=== PATIENT | female | born 1950 | race Caucasian/White ===

== ENCOUNTER 2024-02-13 06:07 | Day surgery (SDC) | payer MEDICARE ==
[2024-02-13 06:40] VITALS: RESP 18
[2024-02-13] MEDS ORDERED: DIPRIVAN 200 MG/20 ML IV ONE (07:06)
[2024-02-13] MEDS ORDERED: ROBINUL ONE (07:06)
[2024-02-13 07:48] VITALS: O2SAT 97
[2024-02-13 08:09] VITALS: BP 112/58; PULSE 53; TEMP 97
[2024-02-13] MEDS ORDERED: PITRESSIN 20 UNITS ONE (08:10)
--- NOTE | 2024-02-14 11:47 | OP ---
SURGERY DATE/TIME: 02/13/2024 [id number] PREOPERATIVE DIAGNOSIS: Positive Cologuard. POSTOPERATIVE DIAGNOSIS: 1) Normal colon. 2) Diverticulosis. PROCEDURE: Colonoscopy. SURGEON: Isaiah Akins MD. ANESTHESIA: MAC by Ziggy Montemayor CRNA. ESTIMATED BLOOD LOSS: None. SPECIMENS: None. DESCRIPTION OF PROCEDURE AND FINDINGS: After informed written consent was obtained, the patient was taken to the endoscopy suite. She was placed in the left lateral decubitus position and anesthesia was titrated to the desired level of consciousness. Digital rectal exam showed normal sphincter tone and no internal lesions. The scope was inserted in the rectum and sequentially the entire colonic mucosa was traversed. The level of the cecum was reached and verified with direct visualization of the ileocecal valve. Prep was noted to be fair to good. Prior to withdrawal, the entire length of the colon was carefully inspected. There were scattered diverticula but no evidence of any bleeding. There were no mucosal lesions or polyps encountered. Prior to withdrawal, retroflexion showed no internal lesions. Scope was removed. Patient was transferred to the recovery room in good condition.
== END 2024-02-13 08:15 | disposition home or self-care (01) ==
LOC: SDC 06:07
PROVIDERS: ATTEND Family Medicine
DX: R19.5 Other fecal abnormalities (principal); K57.30 Diverticulosis of large intestine without perforation or abscess without bleeding
CPT/HCPCS: 93005; J2704